=== PATIENT | female | born 1960 | race Caucasian/White ===

== ENCOUNTER 2019-03-29 20:50 | Emergency (ER) | payer BC ==
[~2019-03-29] VITALS: Ht 167.6 cm; Wt 72.7 kg
[2019-03-29 21:55] VITALS: BP 143/63
== END 2019-03-29 21:53 | disposition home or self-care (01) ==
LOC: ER 20:51
DX: T81.89XA Other complications of procedures, not elsewhere classified, initial encounter (principal); G89.18 Other acute postprocedural pain; Z98.890 Other specified postprocedural states; Y83.9 Surgical procedure, unspecified as the cause of abnormal reaction of the patient, or of later complication, without mention of misadventure at the time of the procedure; Y92.89 Other specified places as the place of occurrence of the external cause
CPT/HCPCS: 29515; 99284

== ENCOUNTER 2020-07-06 08:38 | Emergency (ER) | payer BC ==
[~2020-07-06] VITALS: Ht 165.1 cm; Wt 68.2 kg
[2020-07-06 08:48] VITALS: BP 153/73
[2020-07-06] MEDS ORDERED: BUPIVAcaine/PF 7.5mg/ml (0.75%) 10ml vial IJ ONE (09:20)
[2020-07-06] MEDS ORDERED: LIDOcaine 5% patch TP STA (09:32)
[2020-07-06] MEDS ORDERED: NAPR-56 PO (10:15)
[2020-07-06] MEDS ORDERED: LIDO700A32 TOP (10:15)
[2020-07-06] MEDS ORDERED: DIAZ5TAB4 PO (10:16)
== END 2020-07-06 10:24 | disposition home or self-care (01) ==
LOC: ER 08:39
DX: M62.830 Muscle spasm of back (principal); Z98.890 Other specified postprocedural states; Z79.899 Other long term (current) drug therapy
CPT/HCPCS: 20552; 64450; 99283; 99284